=== PATIENT | male | born 1970 | race American Indian/Alaskan Native ===

== ENCOUNTER 2021-05-12 03:23 | Emergency (ER) | payer BC ==
[2021-05-12 04:28] VITALS: BP 186/96
[2021-05-12] MEDS ORDERED: predniSONE 20 MG TAB PO ONE (04:33)
[2021-05-12] MEDS ORDERED: KETOROLAC 10 MG TAB PO ONE (04:33)
[2021-05-12] MEDS ORDERED: CYCLOBENZAPRINE 10 MG TAB PO NR (04:34)
[2021-05-12] MEDS ORDERED: ACETAMINOPHEN W/CODEINE 300-30 MG TAB PO NR (04:34)
[2021-05-12] MEDS ORDERED: predniSONE 20 MG TAB PO NR (05:00)
[2021-05-12] MEDS ORDERED: KETOROLAC 10 MG TAB PO NR (05:00)
--- NOTE | 2021-05-12 05:19 | Emergency Department Report ---
ED Neck Pain/Injury HPI - General Chief Complaint: Back Pain/Injury Stated Complaint: NECK/SHOULDER PAIN Time Seen by Provider: 05/12/21 04:33 Mode of arrival: Ambulatory Limitations: No Limitations - History of Present Illness Initial Comments: 50-year-old male with a past medical history of sleep apnea presents to the emergency department for evaluation of 3-day history of left neck pain. He states that neck pain started 3 days ago, he denies injury, and states that pain is now radiating to left shoulder down to the left elbow. He states that pain is a deep burning, achy type pain. He states that pain is worse with palpation and certain movements. He states that pain in arm is worse when he presses down on his left neck. He denies chest pain shortness of breath nausea vomiting and dizziness. MD Complaint: neck pain -: Gradual, days(s) (3) Place: home Radiation: left shoulder, left upper extremity Severity: severe Quality: burning, aching Consistency: intermittent Worsens With: movement of extremity, movement of neck Context: unknown Associated Symptoms: numbness, tingling. denies: headache, fever, weakness, vertigo, difficulty walking, swollen glands, nausea, vomiting Treatments Prior to Arrival: none - Related Data Previous Rx's Medication Instructions Recorded Last Taken Type Cyclobenzaprine [Flexeril] 10 mg PO TID PRN #21 05/12/21 Unknown Rx Naproxen [Naprosyn] 500 mg PO BID #14 05/12/21 Unknown Rx methylPREDNISolone [Medrol 4MG 4 mg PO DAILY #1 pack 05/12/21 Unknown Rx DOSEPAK (21 tabs)] Allergies Allergy/AdvReac Type Severity Reaction Status Date / Time No Known Allergies Allergy Verified 05/12/21 04:38 ED Review of Systems ROS: Stated complaint: NECK/SHOULDER PAIN Other details as noted in HPI Comment: All other systems reviewed and negative Constitutional: denies: chills, diaphoresis, fever, malaise, weakness Eyes: denies: eye pain ENT: denies: ear pain, throat pain, dental pain, congestion Respiratory: denies: cough, shortness of breath, SOB with exertion, SOB at rest, wheezing Cardiovascular: denies: chest pain, palpitations, dyspnea on exertion, orthopnea, edema, syncope Endocrine: no symptoms reported Gastrointestinal: denies: abdominal pain, nausea, vomiting, diarrhea, constipation, hematemesis, melena, hematochezia Genitourinary: denies: urgency, dysuria, frequency Musculoskeletal: denies: back pain, joint swelling, arthralgia, myalgia Skin: denies: rash, lesions Neurological: numbness, paresthesias. denies: headache, weakness, abnormal gait Psychiatric: denies: anxiety Hematological/Lymphatic: denies: easy bruising, swollen glands ED Past Medical Hx - Social History Smoking Status: Current Every Day Smoker Substance Use Type: None - Medications Home Medications: Home Medications Medication Instructions Recorded Confirmed Last Taken Type Cyclobenzaprine [Flexeril] 10 mg PO TID PRN #21 05/12/21 Unknown Rx Naproxen [Naprosyn] 500 mg PO BID #14 05/12/21 Unknown Rx methylPREDNISolone [Medrol 4MG 4 mg PO DAILY #1 pack 05/12/21 Unknown Rx DOSEPAK (21 tabs)] ED Physical Exam - General Limitations: No Limitations General appearance: alert, in no apparent distress - Head Head exam: Present: atraumatic, normocephalic - Eye Eye exam: Absent: conjunctival injection - Neck Neck exam: Present: normal inspection, tenderness (To the left side only). Absent: full ROM (Painful range of motion when turns head to the left side), lymphadenopathy - Expanded Neck Exam Expanded Neck exam: Absent: midline deformity, anterior neck swelling, thyroid mass, carotid bruit, tracheal deviation - Respiratory Respiratory exam: Present: normal lung sounds bilaterally. Absent: respiratory distress, wheezes, rales, rhonchi, chest wall tenderness, accessory muscle use - Cardiovascular Cardiovascular Exam: Present: regular rate, normal heart sounds - GI/Abdominal GI/Abdominal exam: Present: soft, normal bowel sounds. Absent: distended, tenderness, guarding, rebound - Extremities Exam Extremities exam: Present: normal inspection - Back Exam Back exam: Present: normal inspection. Absent: full ROM, tenderness, CVA tenderness (R), CVA tenderness (L), muscle spasm - Neurological Exam Neurological exam: Present: alert, oriented X3 - Psychiatric Psychiatric exam: Present: normal affect, normal mood - Skin Skin exam: Present: warm, dry, intact, normal color ED Course Vital Signs 05/12/21 05/12/21 05/12/21 04:25 04:51 04:52 Temperature 98.6 F Pulse Rate 79 Respiratory 24 14 14 Rate Blood Pressure 186/96 O2 Sat by Pulse 100 Oximetry ED Medical Decision Making - Medical Decision Making 50-year-old male with a past medical history of sleep apnea presents to the emergency department for evaluation of 3-day history of left neck pain. He states that neck pain started 3 days ago, he denies injury, and states that pain is now radiating to left shoulder down to the left elbow. He states that pain is a deep burning, achy type pain. He states that pain is worse with palpation and certain movements. He states that pain in arm is worse when he presses down on his left neck. He denies chest pain shortness of breath nausea vomiting and dizziness. Pain improved with medications. Symptoms and exam consistent with cervical radicular pain. Patient was treated in the emergency room with steroids anti- inflammatories muscle relaxants and a one-time dose of pain pill. Pain has mostly resolved. He will be sent home with a prescription for Medrol Dosepak Flexeril and naproxen to take for the next few days. He was advised to take medications as prescribed and follow-up with primary care provider if no improvement or worsening symptoms. He verbalized understanding of and agreement with plan of care. Critical care attestation.: If time is entered above; I have spent that time in minutes in the direct care of this critically ill patient, excluding procedure time. ED Disposition Clinical Impression: Neck pain on left side, Cervical radicular pain Disposition: 01 HOME / SELF CARE / HOMELESS Is pt being admited?: No Does the pt Need Aspirin: No Condition: Stable Instructions: Neck Exercises, Cervical Radiculopathy, [id number] Additional Instructions: Take medications as prescribed. Follow-up with primary care provider or emergency department if no improvement or worsening symptoms. Prescriptions: Cyclobenzaprine [Flexeril] 10 mg PO TID PRN #21 PRN Reason: Muscle Spasm methylPREDNISolone [Medrol 4MG DOSEPAK (21 tabs)] 4 mg PO DAILY #1 pack Naproxen [Naprosyn] 500 mg PO BID #14 Referrals: LEBRON BROWN MD [Referring] - 3-5 Days Time of Disposition: 05:18
== END 2021-05-12 05:36 | disposition home or self-care (01) ==
LOC: ED 03:23
DX: M54.2 Cervicalgia (principal); M54.12 Radiculopathy, cervical region; F17.200 Nicotine dependence, unspecified, uncomplicated
CPT/HCPCS: 99282